=== PATIENT | female | born 1960 | race Caucasian/White ===

== ENCOUNTER → 2021-05-03 14:43 | Outpatient (BNVA) | payer OTHER, SELFPAY | PROVIDERS: PCP Internal Medicine; Visit Provider Internal Medicine | DX: S33.5XXA Sprain of ligaments of lumbar spine, initial encounter (principal); W51.XXXA Accidental striking against or bumped into by another person, initial encounter; M54.40 Lumbago with sciatica, unspecified side | CPT/HCPCS: 99203 ==

== ENCOUNTER → 2021-05-07 14:01 | Outpatient (BNVA) | payer OTHER, SELFPAY | PROVIDERS: PCP Internal Medicine; Visit Provider Internal Medicine | DX: M54.40 Lumbago with sciatica, unspecified side (principal) | CPT/HCPCS: 99213 ==

== ENCOUNTER → 2021-05-13 08:24 | Outpatient (BNVA) | payer OTHER, SELFPAY | PROVIDERS: PCP Internal Medicine; Visit Provider Internal Medicine | DX: M54.40 Lumbago with sciatica, unspecified side (principal) | CPT/HCPCS: 99213 ==

== ENCOUNTER → 2021-05-20 08:19 | Outpatient (BNVA) | payer OTHER, SELFPAY | PROVIDERS: PCP Internal Medicine; Visit Provider Internal Medicine | DX: M54.42 Lumbago with sciatica, left side (principal) | CPT/HCPCS: 99213 ==

== ENCOUNTER → 2021-06-03 08:34 | Outpatient (BNVA) | payer OTHER, SELFPAY | PROVIDERS: PCP Internal Medicine; Visit Provider Internal Medicine | DX: M54.42 Lumbago with sciatica, left side (principal); R20.0 Anesthesia of skin | CPT/HCPCS: 99213 ==

== ENCOUNTER → 2021-06-17 08:09 | Outpatient (BNVA) | payer OTHER, SELFPAY | PROVIDERS: PCP Internal Medicine; Visit Provider Internal Medicine | DX: M54.42 Lumbago with sciatica, left side (principal); R20.0 Anesthesia of skin | CPT/HCPCS: 99213 ==